=== PATIENT | male | born 1990 | race Caucasian/White ===

== ENCOUNTER 2020-08-17 05:12 | Emergency (ER) | payer OTHER ==
[2020-08-17] MEDS ORDERED: AMOXicillin 250 MG CAP ONE (05:25)
== END 2020-08-17 05:20 | disposition home or self-care (01) ==
LOC: BURERS 05:12
DX: K03.81 Cracked tooth (principal); I10 Essential (primary) hypertension
CPT/HCPCS: 99282

== ENCOUNTER 2022-07-03 03:29 | Emergency (ER) | payer OTHER ==
[2022-07-03] MEDS ORDERED: Azithromycin 250 MG TAB ONE (04:32)
== END 2022-07-03 04:50 | disposition home or self-care (01) ==
LOC: BURERS 03:29
DX: J15.7 Pneumonia due to Mycoplasma pneumoniae (principal); I10 Essential (primary) hypertension; E66.9 Obesity, unspecified; Z79.899 Other long term (current) drug therapy
CPT/HCPCS: 71045; 87081; 87430; 87804